=== PATIENT | female | born 1985 | race Caucasian/White ===

== ENCOUNTER 2018-01-23 09:56 | Inpatient (IN) ==
[2018-01-23] MEDS ORDERED: Ringers Solution, Lactated 1,000 ML IVC ONE (10:15)
[2018-01-23] MEDS ORDERED: Oxytocin 20 units/ LR 1000 mL 20 UNIT/1,000 ML BAG IVC SCH ×2 (10:15→14:36)
[2018-01-23] MEDS ORDERED: Metoclopramide 10 MG/2 ML VIAL IVP ONE (10:15)
[2018-01-23] MEDS ORDERED: Famotidine 20 MG/2 ML VIAL IVP ONE (10:15)
[2018-01-23] MEDS ORDERED: Oxytocin 20 units/ LR 1000 mL 20 UNIT/1,000 ML BAG IVC ONE (10:15)
[2018-01-23] MEDS ORDERED: Ringers Solution, Lactated 1,000 ML IVC SCH ×2 (10:15→14:36)
[2018-01-23] MEDS ORDERED: CeFAZolin Premix DUPLEX 2,000 MG/50 ML BAG IVPB ONE (10:15)
[2018-01-23] MEDS ORDERED: Lidocaine -MPF 2% 5 ML VIAL ONE (11:00)
--- NOTE | 2018-01-23 11:25 | OB/GYN History & Physical ---
Date of Encounter: 01/23/18 Time of Encounter: 11:20 Assessment and Plan (1) and not yet delivered in third trimester Current visit: Yes Status: Acute (2) 38 weeks gestation of Current visit: Yes Status: Acute (3) Previous section complicating Current visit: Yes Status: Acute We will prepare the patient for a repeat low transverse section possible hysterectomy with bilateral partial salpingectomy (4) Family planning advice Current visit: Yes Status: Acute History of Present Illness HPI: Ms. Guerrero is a 32 year old female 5 para 3104 at 38-4/7 weeks by an 11-4/ 7 week ultrasound who presented for repeat section with tubal ligation. Patient has a history of 4 previous sections and does not want a tubal ligation patient has been advised that we would have to consent her for hysterectomy because of her history she does state that the last time she had a there with extensive scar tissue. Patient will be typed and crossed for 2 units just in case. Patient was counseled that the tubal ligation of a papillary rate of 5 today per thousand with increased risk of ectopic if was to occur. Baby is also been diagnosed with a cleft lip cleft palate is planning on following up with [facility] s after the baby is born Past Med Surg Social Fam HX - Past Medical History Source: patient, old records reviewed Medical history: no medical history Psychiatric history: no psych history - Past Surgical History Surgical History: (Times 4), cholecystectomy - Social History Smoking Status: Current every day smoker Smokeless Tobacco Status: No Alcohol use: none Drug use: none Occupational status: unemployed Current living situation: Home - Independent Activity Level: Independent ambulation Recent Out of Country Travel Within the Last 8 Weeks: No Exposure or Possible Exposure to Illness During Travel: No - Additional Family History Additional family history: Family history noncontributory Obstetrical History - Pregnancies : 5 Para: 4 Term: 3 : 1 Ab's: 0 Livin Review of System OB All systems PM: reviewed and no additional remarkable complaints except as stated Exam - Constitutional Constitutional: well developed, well nourished, no acute distress, average body habitus - HEENT HEENT: EOMI, PERRL, Mucus Membranes Moist - Neck Neck exam: full ROM - Lungs Respiratory exam: accessory muscle use - Abdomen Abdomen: Present: bowel sounds normal, gravid - Cervix Dilation: 0 Effacement: 50 Station: -3 Results All other labs normal.
[2018-01-23 11:29] LABS: Basophils % 0.5 %; Eosinophils # 0.1 K/mcL (0.0-0.6); Eosinophils % 0.6 %; Hematocrit 31.1 % (35.3-44.9); Hemoglobin 10.3 g/dL (11.5-15.4); Immature Granulocytes % 1.4 % (0-4); Lymphocytes % 25.6 %; Mean Corpuscular HGB Conc 33.1 g/dL (31.6-35.5); Mean Corpuscular Hemoglobin 29.4 pg (28.0-33.3); Mean Corpuscular Volume 88.9 fL (83.0-100.0); Mean Platelet Volume 9.4 fL (9.4-12.4); Monocytes # 0.7 K/mcL (0.0-1.3); Monocytes % 8.8 %; Platelet Count 250 K/mcL (140-400); Red Cell Distribution Width 13.3 % (11.5-14.5); Segmented Neutrophils % 63.1 %
[2018-01-23 11:32] LABS: Amphetamine Screen,Urine Negative ng/mL (Cutoff=1000); Barbiturate Screen,Urine Negative ng/mL (Cutoff=200); Benzodiazepines Screen,Urine Negative ng/mL (Cutoff=200); Cannabinoid Screen,Urine Negative ng/mL (Cutoff = 50); Cocaine Screen,Urine Negative ng/mL (Cutoff= 300); Opiate Screen,Urine Negative ng/mL (Cutoff=300); Phencyclidine Screen,Urine Negative ng/mL (Cutoff=25)
--- NOTE | 2018-01-23 12:10 | Anesthesia Evaluation PreOp ---
Date of Encounter: 01/23/18 Time of Encounter: 12:08 - Past History Planned Operation: Repeat C-S (fifth C-S), poss hysterectomy Cardiac History: Denies any Significant Hx Pulmonary History: Former smoker LEDGER CLERK History: Denies Any Significant HX Other Medical History: Denies Any Significant HX Anesthesia History: No Prior Anesthetic Complications, Past Anesthesia ( multiple C-S, cholecystectomy) Alcohol Use: none Drug use: none Medications and Allergies 3 Allergy/AdvReac Type Severity Reaction Status Date / Time morphine Allergy Hives Verified 01/23/18 11:21 vancomycin Allergy Anaphylaxis Verified 01/23/18 11:21 - Meds/Allergy Pre-op Review Medications Reviewed: Yes Allergies Reviewed: Yes Beta Blockers on Current Med List: No Anesthesia Results - Labs 01/23/18 10:43 Anesthesia Exam Weight: 74 kg NPO (# of Hours): > 8 hrs - HEENT Pupil (Motor): Pupils equal, EOMI Mallampati: II Teeth: Normal Oral Opening: Greater than 3 - LEDGER CLERK LOC: Oriented - Cardiac Rhythm: Regular Murmur: None - Pulmonary Breath Sounds: bilateral Clear Respiratory Effort: Symmetrical Anesthesia Assess/Plan ASA Score: 2 Modified Amber Scale for Level of Consciousness: Cooperative, oriented, and tranquil Anesthetic Plan: General, Precautions (cell saver and T&C blood ready due to potential for bleeding; 2 large bore IV's already in place) Monitoring Plan: Standard Monitors Recovery Plan: PACU
--- NOTE | 2018-01-23 12:23 | OB/GYN Procedure Note ---
Section - Date of procedure: 01/23/18 Preop diagnosis: other (Intrauterine at 38 and 4 seconds weeks, previous section 4, desires permanent form of sterilization) Post-op diagnosis: same (with extensive pelvic adhesions) Procedure: repeat low transverse, bilateral tubal ligation, other (Lysis of extensive adhesions) Surgeon: Ander Moeller Estimated blood loss (cc): 500 Was there an assistant production editor present: No Anesthesiologist: [employer] Monotype Caster: Harriett Redd Anesthesia Type: General section complications: none Disposition: L&D Recovery Room Specimens: Right tube segment, Left tube segment - Infant (s) A Infant Delivery Date: 01/23/18 Delivery Time: 13:00 Presentation: vertex Position: unknown Route of delivery: other ( section) Gender: Male Viability: Viable Pounds: 6 Ounces: 12 Gram Weight: 3.06 kg at 1 minute: 3 at 5 minutes: 9 Shoulder Dystocia: not encountered Specimens collected: cord blood Placenta: spontaneous Cord: 3 umbilical vessels - Narrative Narrative: Patient is a 32-year-old 5 para 3104 at 38-4/7 weeks who presented for repeat section with tubal ligation. Because this is her fourth section she was also consented for possible hysterectomy. Patient also wants a tubal ligation the risks and benefits of the tubal had been previously discussed with failure rate of 5-8 per thousand with increased risk of ectopic if was to occur. Procedure: Patient was taken the operating room where she was placed in the dorsal supine position prepped and draped in usual fashion. Timeout was then obtained. Gen. anesthesia was then administered and then a Pfannenstiel incision was made with a scalpel and carried down through the underlying tissue to the fascia was identified. The fascia was nicked in midline and extended laterally with the Parsons scissors. The superior and inferior edges of the fascia were grasped tented up and dissected the rectus muscles. Rectus muscles were in the midline and this time the peritoneum was adherent to the anterior uterine wall. We were able to peel the uterus off the anterior abdominal wall enough to make a window to get into the uterus. An incision was made in the lower uterine segment then the incision was extended laterally with bandage scissors. Membranes were ruptured and clear fluid was noted. The infant was then fully delivered there was a nuchal cord 1 loose and reduced the cord was clamped and cut and the infant was then handed off to waiting pediatric team. Placenta was then delivered spontaneously uterus was exteriorized and cleaned of all clots and debris. We had minimal bleeding and there was no signs that she would need a hysterectomy the lower uterine segment was then closed using a 0 Vicryl in a running locking stitch by a 2 layer closure with good hemostasis noted. Attention was then turned to the fallopian tubes each tube was grasped at the ampullary region and the distal portion of the fallopian tube including the fimbria was then removed after the suture ligated with O plain 2. Good hemostasis was noted. Both ovaries were nonpalpable the uterus was then returned to the abdomen and the gutters were cleaned of all clots and debris and copiously irrigated. The parietal peritoneum was then closed using a 2-0 Vicryl in a running stitch the fascia was closed using a #1 stratafix In a running stitch and the skin was closed using a 4-0 Vicryl in a subcuticular manner. The lesa dressing was then applied and the patient was taken to the recovery room in stable condition. All needles and sponge counts were correct 3 she did receive preoperative antibiotics and she will be started on a Dilaudid AMBULATORY NURSE pump.
[2018-01-23] MEDS ORDERED: *HR* Propofol 200 MG/20 ML VIAL IVP ONE (12:32)
[2018-01-23] MEDS ORDERED: EPHEDrine 50 MG/ML VIAL ONE (12:37)
[2018-01-23] MEDS ORDERED: 0.9 % Sodium Chloride 1,000 ML ONE (12:38)
[2018-01-23] MEDS ORDERED: *HR* Ropivacaine/PF 0.5% 20 ML VIAL ONE (12:52)
[2018-01-23] MEDS ORDERED: *HR* Oxytocin 10 UNIT/ML VIAL IM ONE ×2 (13:06→20:15)
[2018-01-23] MEDS ORDERED: *HR* FentaNYL (PF) 100 MCG/2 ML VIAL ONE ×2 (13:23→14:46)
--- NOTE | 2018-01-23 14:28 | Anesthesia Procedures ---
Date of Encounter: 01/23/18 Time of Encounter: 14:05 Procedures: Anesthesia - Nerve Block Procedure Date: 01/23/18 Time: 14:05 Surgical Procedure: repeat P4 Checklist: Correct Patient Identifier, Correct procedure, History checked Blood Thinner: No Monitor Applied: EKG, BP, Pulse Oximetry Indication: Post Op Analgesia Block Type: Other (TAP block) Catheter placed: No Sterile Technique: Yes Ultrasound used: Yes Anatomy identified: Yes Visual spread of Local: Yes Neuro Stimulation: No Blood on Needle Aspiration: No Smooth Injection of Local: Yes Pain with Injection of Local: No Prep: Chlorhexadine Needle: 21 x 100 mm Stimuplex Local: Ropivacaine (30ml 0.5% rop plain, diluted with NS. ) Volume (cc): 70 Number of Attempts: 1 Complications: None/effective block Vitals: vss
[2018-01-23] MEDS ORDERED: Sennosides 8.6 MG TABLET PO PRN (14:36)
[2018-01-23] MEDS ORDERED: Simethicone 80 MG TAB.CHEW PO PRN (14:36)
[2018-01-23] MEDS ORDERED: Ondansetron 4 MG/2 ML VIAL IVP PRN (14:36)
[2018-01-23] MEDS ORDERED: *HR* HYDROmorphone 20 MG/20 ML PCA IVC PRN (14:36)
[2018-01-23] MEDS ORDERED: Metoclopramide 10 MG/2 ML VIAL IVP PRN (14:36)
[2018-01-23] MEDS ORDERED: Bupivacaine-MPF 0.25% 10 ML VIAL ONE (14:50)
[2018-01-23] MEDS ORDERED: Ketorolac 30 MG/ML VIAL ONE (20:15)
[2018-01-23] MEDS ORDERED: Dexamethasone 4 MG/ML VIAL ONE (20:15)
[2018-01-23] MEDS ORDERED: Ondansetron 4 MG/2 ML VIAL ONE (20:15)
[2018-01-24 04:58] LABS: Basophils % 0.2 %; Eosinophils % 0.1 %; Hematocrit 25.1 % (35.3-44.9); Immature Granulocytes % 1.1 % (0-4); Lymphocytes # 1.5 K/mcL (0.6-4.6); Lymphocytes % 13.5 %; Mean Corpuscular HGB Conc 33.1 g/dL (31.6-35.5); Mean Corpuscular Hemoglobin 29.3 pg (28.0-33.3); Mean Corpuscular Volume 88.7 fL (83.0-100.0); Mean Platelet Volume 9.5 fL (9.4-12.4); Monocytes # 0.7 K/mcL (0.0-1.3); Monocytes % 6.1 %; Neutrophils # 8.6 K/mcL (1.6-8.9); Platelet Count 194 K/mcL (140-400); Red Blood Count 2.83 M/mcL (3.82-4.97)
[2018-01-24 05:02] LABS: Hemoglobin 8.3 g/dL (11.5-15.4)
--- NOTE | 2018-01-24 09:25 | OB/GYN Progress Note ---
Date of Encounter: 01/24/18 Time of Encounter: 09:23 - Assessment and Plan (1) Status post repeat low transverse section Current Visit: Yes Status: Acute Continue routine care Patient meeting day 1 milestones (2) Status post tubal ligation Current Visit: Yes Status: Acute continue routine care Subjective - Subjective Principal diagnosis: status post repeat c/s and tubal ligation Interval history: Patient resting in bed. Patient is tolerating regular diet. Will stop DIGITAL TECHNICIAN and start PO pain medication. Patient denies any diarrhea this am. Patient reports: appetite normal, voiding normally, pain well controlled, ambulating normally : doing well, bottle feeding Objective - Vital Signs Latest vital signs: Vital Signs Temp Pulse Resp BP Pulse Ox 01/24/18 08:23 98.9 F 85 18 96/63 96 01/24/18 03:17 99 F 87 16 100/66 99 01/23/18 23:20 98.8 F 69 16 117/76 98 01/23/18 20:40 97.5 F L 58 14 101/66 98 01/23/18 19:30 98.2 F 73 16 112/73 97 01/23/18 18:36 16 01/23/18 18:30 97.4 F L 74 16 103/66 96 01/23/18 18:00 97.6 F 64 16 105/66 97 01/23/18 17:30 97.9 F 62 16 108/69 97 Intake and Output 01/23/18 01/24/18 01/24/18 23:59 07:59 15:59 Output Total 1450 / 1450 1200 / 1200 Balance -1450 / -1450 -1200 / -1200 Output: Emesis 300 / 300 Catheter 1450 / 1450 900 / 900 Urethral (Kumar) 450 / 450 900 / 900 Other: Stool Size Large Stool Consistency loose liquid # Bowel Movements 1 Weight 72.3 kg 71.758 kg Patient Weight 01/24/18 23:59 Weight 71.758 kg - Exam Lungs: bilateral: normal Extremities: Present: normal Abdomen: Present: normal appearance, soft Incision: Present: normal, dry, intact, dressed (FLO) Uterus: Present: normal, firm Fundal Height: 2 (U/2) - Labs Labs: Laboratory Results - last 24 hr 01/23/18 01/23/18 01/23/18 10:43 10:43 10:43 WBC 7.9 RBC 3.50 L Hgb 10.3 L Hct 31.1 L MCV 88.9 MCH 29.4 MCHC 33.1 RDW 13.3 Plt Count 250 MPV 9.4 Immature Gran % 1.4 Seg Neutrophils % 63.1 Lymphocytes % 25.6 Monocytes % 8.8 Eosinophils % 0.6 Basophils % 0.5 Neutrophils # 5.0 Lymphocytes # 2.0 Monocytes # 0.7 Eosinophils # 0.1 Basophils # 0.0 Urine Opiates Screen Negative Ur Barbiturates Screen Negative Ur Phencyclidine Scrn Negative Ur Amphetamines Screen Negative U Benzodiazepines Scrn Negative Urine Cocaine Screen Negative U Marijuana (THC) Screen Negative Blood Type O POSITIVE Antibody Screen NEGATIVE Crossmatch See Detail 01/24/18 04:17 WBC 10.9 RBC 2.83 L Hgb 8.3 L D Hct 25.1 L MCV 88.7 MCH 29.3 MCHC 33.1 RDW 13.0 Plt Count 194 MPV 9.5 Immature Gran % 1.1 Seg Neutrophils % 79.0 Lymphocytes % 13.5 Monocytes % 6.1 Eosinophils % 0.1 Basophils % 0.2 Neutrophils # 8.6 Lymphocytes # 1.5 Monocytes # 0.7 Eosinophils # 0.0 Basophils # 0.0 Urine Opiates Screen Ur Barbiturates Screen Ur Phencyclidine Scrn Ur Amphetamines Screen U Benzodiazepines Scrn Urine Cocaine Screen U Marijuana (THC) Screen Blood Type Antibody Screen Crossmatch
[2018-01-24] MEDS: Ibuprofen 600 MG TABLET PO PRN ×2 (10:33→17:14)
[2018-01-24] MEDS: *HR* OxyCODONE/APAP 5/325 TABLET PO PRN ×3 (10:33→21:23)
[2018-01-24] MEDS: Prenatal Vit/FA 1 EACH TABLET PO SCH (10:33)
[2018-01-25] MEDS: *HR* OxyCODONE/APAP 5/325 TABLET PO PRN ×2 (03:26→09:00)
[2018-01-25] MEDS: Ibuprofen 600 MG TABLET PO PRN (05:36)
[2018-01-25] MEDS: Prenatal Vit/FA 1 EACH TABLET PO SCH (08:57)
[2018-01-25 10:43] VITALS: BP 97/62
--- NOTE | 2018-01-25 12:49 | Discharge Summary ---
Date of Encounter: 01/25/18 Time of Encounter: 12:45 - Discharge Diagnosis (1) anemia Priority: Secondary Status: Acute Comments: We will discharge home on iron (2) Status post repeat low transverse section Priority: Primary Status: Acute Comments: Patient states pain well-managed on by mouth pain medication, bottlefeeding, tolerating regular diet, voiding without difficulty. Desires discharge - Discharge Medications Prescriptions: OxyCODONE/APAP 5/325 [Percocet 5/325 MG] 1 each PO Q4HR PRN 7 Days #20 tablet PRN Reason: Moderate pain 4-6 Ibuprofen [Motrin] 600 mg PO Q6HR PRN #60 tablet PRN Reason: Cramping Docusate [Colace] 100 mg PO BID #60 capsule Ferrous Sulfate 325 mg PO BIDWM #60 tablet Home Medications: Docusate [Colace] 100 mg PO BID #60 capsule 01/25/18 [Rx] Ferrous Sulfate 325 mg PO BIDWM #60 tablet 01/25/18 [Rx] Ibuprofen [Motrin] 600 mg PO Q6HR PRN #60 tablet 01/25/18 [Rx] OxyCODONE/APAP 5/325 [Percocet 5/325 MG] 1 each PO Q4HR PRN 7 Days #20 tablet [Rx] Vit/FA 1 each PO DAILY #0 tablet 01/25/18 [Rx] Allergies/Adverse Reactions: 3 Allergy/AdvReac Type Severity Reaction Status Date / Time morphine Allergy Hives Verified 01/23/18 11:21 vancomycin Allergy Anaphylaxis Verified 01/23/18 11:21 Data Procedures and tests throughout hospitalization: Laboratory Tests 01/23/18 01/23/18 01/23/18 10:43 10:43 10:43 WBC 7.9 RBC 3.50 L Hgb 10.3 L Hct 31.1 L MCV 88.9 MCH 29.4 MCHC 33.1 RDW 13.3 Plt Count 250 MPV 9.4 Immature Gran % 1.4 Seg Neutrophils % 63.1 Lymphocytes % 25.6 Monocytes % 8.8 Eosinophils % 0.6 Basophils % 0.5 Neutrophils # 5.0 Lymphocytes # 2.0 Monocytes # 0.7 Eosinophils # 0.1 Basophils # 0.0 Urine Opiates Screen Negative Ur Barbiturates Screen Negative Ur Phencyclidine Scrn Negative Ur Amphetamines Screen Negative U Benzodiazepines Scrn Negative Urine Cocaine Screen Negative U Marijuana (THC) Screen Negative Blood Type O POSITIVE Antibody Screen NEGATIVE Crossmatch See Detail 01/24/18 04:17 WBC 10.9 RBC 2.83 L Hgb 8.3 L D Hct 25.1 L MCV 88.7 MCH 29.3 MCHC 33.1 RDW 13.0 Plt Count 194 MPV 9.5 Immature Gran % 1.1 Seg Neutrophils % 79.0 Lymphocytes % 13.5 Monocytes % 6.1 Eosinophils % 0.1 Basophils % 0.2 Neutrophils # 8.6 Lymphocytes # 1.5 Monocytes # 0.7 Eosinophils # 0.0 Basophils # 0.0 Urine Opiates Screen Ur Barbiturates Screen Ur Phencyclidine Scrn Ur Amphetamines Screen U Benzodiazepines Scrn Urine Cocaine Screen U Marijuana (THC) Screen Blood Type Antibody Screen Crossmatch Date of admission: 01/23/18 09:56 Primary care physician: PCP URIEL Discharging clinician: Yojana Carrera Anticipated date of discharge: 01/25/18 - Patient Status Disposition: Home, Self-Care Condition: Good Functional capacity at discharge: independent ambulation Overall status at discharge: patient is back to baseline - Discharge Instructions Instructions: Anemia (GEN) Follow Up With: NONE,PCP [Primary Care Provider] - Ander Moeller DO [Partnered Physician] - - Diet and Activity Activity: resume usual activities as tolerated Diet: regular diet Hospital Course Reason for admission: section Delivery: section Episiotomy: none Laceration: none Other procedures: tubal ligation complications: none Discharge diagnosis: IUP at term delivered baby: male Hospital course: Section - Date of procedure: 01/23/18 Preop diagnosis: other (Intrauterine at 38 and 4 seconds weeks, previous section 4, desires permanent form of sterilization) Post-op diagnosis: same (with extensive pelvic adhesions) Procedure: repeat low transverse, bilateral tubal ligation, other (Lysis of extensive adhesions) Surgeon: Ander Moeller Estimated blood loss (cc): 500 Was there an medical assistant per diem present: No Anesthesiologist: [employer] Control Clerk: Harriett Redd Anesthesia Type: General section complications: none Disposition: L&D Recovery Room Specimens: Right tube segment, Left tube segment - (s) A Delivery Date: 01/23/18 Delivery Time: 13:00 Presentation: vertex Position: unknown Route of delivery: other ( section) Gender: Male Viability: Viable Pounds: 6 Ounces: 12 Gram Weight: 3.06 kg at 1 minute: 3 at 5 minutes: 9 Shoulder Dystocia: not encountered Specimens collected: cord blood Placenta: spontaneous Cord: 3 umbilical vessels Stable in and appropriate for discharge, OAARS reviewed Time Attestation: Total time spent providing and/or coordinating discharge services: - VTE Documentation of Mechanical Device: Intermittent pneumatic compression device Exam - Constitutional Vitals: Temp Pulse Resp BP Pulse Ox 98.3 F 81 16 97/62 95 01/25/18 09:00 01/25/18 09:00 01/25/18 09:00 01/25/18 09:00 01/25/18 09:00 General appearance IM: A&O X 3 - Respiratory Respiratory exam: Present: CTAB - Cardiovascular Cardiovascular exam IM: Present: RRR - GI/Abdominal GI/Abdominal exam IM: normal bowel sounds, soft Incision: dressed (FLO in place) - Uterine Tone: Firm Uterus Position: At Umbilicus - Extremities Exam Extremities exam IM: Present: normal capillary refill, normal inspection - Neurological Exam Neurological exam: normal gait, oriented X3 - Psychiatric Additional comments: Reports good mood
== END 2018-01-25 15:30 | disposition home or self-care (01) | DRG 540 ==
LOC: 1NENULAB 09:56
PROVIDERS: ADMIT Obstetrics & Gynecology; ATTEND Obstetrics & Gynecology